=== PATIENT | female | born 1995 | race Caucasian/White ===

== ENCOUNTER 2016-09-11 18:56 | Emergency (ER) | payer OTHER ==
[~2016-09-11] VITALS: Ht 170.2 cm; Wt 60.5 kg
[2016-09-11] MEDS ORDERED: BIRTH CONTROL PILL PO (19:21)
[2016-09-11] MEDS ORDERED: diazePAM 5 MG TAB PO ONE (21:30)
[2016-09-11] MEDS ORDERED: PERCOCET 5MG/325MG TAB PO ONE (21:30)
[2016-09-11] MEDS ORDERED: KETOROLAC 60 MG/2 ML VIAL (J1885) IM ONE (21:30)
[2016-09-11] MEDS ORDERED: NAPR500T PO (22:18)
[2016-09-11] MEDS ORDERED: SKEL800T97 PO (22:18)
[2016-09-11 22:24] VITALS: BP 132/82
== END 2016-09-11 22:35 | disposition home or self-care (01) ==
LOC: M ED 18:56
DX: M62.830 Muscle spasm of back (principal); M54.9 Dorsalgia, unspecified; B96.81 Helicobacter pylori [H. pylori] as the cause of diseases classified elsewhere; F17.200 Nicotine dependence, unspecified, uncomplicated; Z79.3 Long term (current) use of hormonal contraceptives
CPT/HCPCS: 99282; J1885